=== PATIENT | male | born 1930 | race Caucasian/White ===

== ENCOUNTER → 2018-06-30 | Outpatient (CLI) | payer MEDICARE ==
[~2018-06-30] MED LIST: ALBU8.5H8 INH; ANORA; ASCO100T5 PO; ASPI-496 PO; ATOR20TA9 PO; ATOR40TA78 PO; CALC600T4 PO; CHOL100011 PO; CHOL100012 PO; FINA5TAB4 PO; GLUC100015 PO; LEVO125T63 PO; LOSA50TA7 PO; METO25TA35 PO; MOME13HF2 INH; MULT-208 PO; NIAC500T10 PO; OMEG1CAP23 PO; OXYC5TAB3 PO; THIA100T27 PO; TIOT18CA INH; VITA1TAB19 PO; VITA80004 PEG; methylprednisolone PO
== END | disposition home or self-care (01) ==
LOC: CVU 13:17
PROVIDERS: ATTEND Surgery
DX: I65.23 Occlusion and stenosis of bilateral carotid arteries (principal); I08.0 Rheumatic disorders of both mitral and aortic valves; I11.9 Hypertensive heart disease without heart failure; E78.5 Hyperlipidemia, unspecified; Z87.891 Personal history of nicotine dependence
CPT/HCPCS: 93306; 93880; 93978

== ENCOUNTER → 2018-07-08 | Outpatient (CLI) | payer MEDICARE | END | disposition home or self-care (01) | LOC: RAD 11:08 | PROVIDERS: ATTEND Surgery | DX: I71.4 Abdominal aortic aneurysm, without rupture (principal) | CPT/HCPCS: 72170; 74021 ==

== ENCOUNTER 2019-04-13 10:02 | Inpatient (IN) | payer MEDICARE ==
[~2019-04-13] VITALS: Ht 175.3 cm; Wt 81.1 kg
[2019-04-15 07:30] VITALS: BP 147/73
== END 2019-04-15 10:54 | disposition home health service (06) | DRG 312 ==
LOC: ED 12:23 → EDIP 12:24 → INTOOBSV 12:24 → OBSVTOIN 12:25 → ED 12:45 → 5SO 17:13 → DCLOUNGE 04-15 10:44
PROVIDERS: ADMIT Internal Medicine; ATTEND Internal Medicine
DX: I95.1 Orthostatic hypotension (principal); I44.0 Atrioventricular block, first degree; N40.0 Benign prostatic hyperplasia without lower urinary tract symptoms; Z66 Do not resuscitate; J44.9 Chronic obstructive pulmonary disease, unspecified; I71.4 Abdominal aortic aneurysm, without rupture; I25.10 Atherosclerotic heart disease of native coronary artery without angina pectoris; I10 Essential (primary) hypertension; E78.5 Hyperlipidemia, unspecified; Z86.79 Personal history of other diseases of the circulatory system; Z80.9 Family history of malignant neoplasm, unspecified
CPT/HCPCS: 36415; 71045; 80048; 80053; 81003; 84443; 84484; 85025; 93005; 93306; 93978; 94640; 99285; G0378; J1650; J3480; J7613; J7626; 92523-GN

== ENCOUNTER → 2019-10-12 | Outpatient (CLI) | payer MEDICARE ==
[~2019-10-12] MED LIST changes: +AMLO10TA8 PO; +ASPI-515 PO; +ATOR20TA37 PO; -ATOR20TA9 PO; +FLUT12HF2 INH; +LEVA15HF4 INH; +LEVO137T3 PO; +LOSA100T14 PO; +LOSA50TA14 PO; -LOSA50TA7 PO; +NIAC-1 PO; -NIAC500T10 PO; +TAMS-11 PO
== END | disposition home or self-care (01) ==
LOC: CVU 11:26
PROVIDERS: ATTEND Surgery
DX: I65.23 Occlusion and stenosis of bilateral carotid arteries (principal); I71.4 Abdominal aortic aneurysm, without rupture; I10 Essential (primary) hypertension; J44.9 Chronic obstructive pulmonary disease, unspecified; E78.5 Hyperlipidemia, unspecified; E03.9 Hypothyroidism, unspecified; Z91.041 Radiographic dye allergy status; Z95.5 Presence of coronary angioplasty implant and graft
CPT/HCPCS: 93880; 93978

== ENCOUNTER → 2019-10-24 | Outpatient (CLI) | payer MEDICARE ==
[~2019-10-24] MED LIST changes: +REGADENOSON 0.4 MG/5 ML SYRINGE ONE
== END | disposition home or self-care (01) ==
LOC: RAD 08:50
PROVIDERS: ATTEND Internal Medicine Cardiovascular Disease
DX: I25.10 Atherosclerotic heart disease of native coronary artery without angina pectoris (principal); R07.89 Other chest pain
CPT/HCPCS: 78452; 93017; A9502; J2785

== ENCOUNTER 2020-01-20 09:14 | Emergency (ER) | payer MEDICARE ==
[~2020-01-20] VITALS: Ht 175.3 cm; Wt 75.0 kg
[~2020-01-20 09:14] MED LIST changes: -REGADENOSON 0.4 MG/5 ML SYRINGE ONE
--- NOTE | 2020-01-20 09:25 | NUR ---
PT UP SELF TO RR WTIH STEADY GAIT TO PROVIDE URINE SAMPLE.
[2020-01-20] MEDS ORDERED: SODIUM CHLORIDE FLUSH 10ML SYR IVF ONE (10:00)
[2020-01-20 10:13] LABS: BASOPHILS # (AUTO) 0.04 x10^3/uL (0-0.1); BASOPHILS % (AUTO) 1 % (0-1); EOSINOPHILS # (AUTO) 0.61 x10^3/uL (0-0.4); EOSINOPHILS % (AUTO) 7 % (1-7); LYMPHOCYTES # (AUTO) 1.73 x10^3/uL (1-3.4); LYMPHOCYTES % (AUTO) 20 % (22-44); MD NO; MEAN CORPUSCULAR HEMOGLOBIN 31.4 pg (27.5-34.5); MEAN CORPUSCULAR VOLUME 95.1 fL (81-97); MONOCYTES # (AUTO) 0.69 x10^3/uL (0.2-0.8); MONOCYTES % (AUTO) 8 % (2-9); NEUTROPHILS # (AUTO) 5.61 x10^3/uL (1.8-6.8); NEUTROPHILS % (AUTO) 65 % (42-75); PLATELET COUNT 346 x10^3/uL (130-400); RED CELL DISTRIBUTION WIDTH 13.4 % (9.4-14.8)
--- NOTE | 2020-01-20 10:14 | NUR ---
PT TO ED FOR GROSS HEMATURIA SINCE YESTERDAY. PT DENIES ABD LA PELVIC PAIN, N/V/F/C/D. PT CONNECTED TO MONITORS. HX ASYMPTOMATIC BRADYCARDIA, VSS. EDPA FADUMO TO BS FOR ASSESSMENT. ORDERS RECEIVED. PIV ESTABLISHED AND LABS DRAWN AND SENT TO LAB. NO NEEDS EXPRESSED AT THIS TIME. CALL LIGHT WITHIN REACH. AWAITING LAB RESULTS AND CT.
[2020-01-20 10:15] LABS: MICROSCOPIC INDICATED
[2020-01-20 10:22] LABS: CULTURE INDICATED? YES
[2020-01-20 10:25] LABS: ALANINE AMINOTRANSFERASE 16 U/L (12-78); ALBUMIN 3.5 g/dL (3.4-5.0); ANION GAP 3 mmol/L (5-15); CHLORIDE 111 mmol/L (98-107); CREATININE 1.28 mg/dL (0.7-1.3)
[2020-01-20 10:27] LABS: ALKALINE PHOSPHATASE 73 U/L (45-117); BILIRUBIN,TOTAL 0.5 mg/dL (0.2-1.0)
--- NOTE | 2020-01-20 10:40 | NUR ---
PT TO CT.
--- NOTE | 2020-01-20 11:08 | NUR ---
pt resting room. vss. no needs expressed. call light within reach. awaiting ct resutls.
--- NOTE | 2020-01-20 11:27 | NUR ---
all results back at this time. chart up for recheck.
--- NOTE | 2020-01-20 12:03 | NUR ---
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 ABDUL REQUEST
[2020-01-20 13:18] VITALS: BP 155/115
== END 2020-01-20 13:20 | disposition home or self-care (01) ==
LOC: ED 11:00
DX: R31.0 Gross hematuria (principal); R10.9 Unspecified abdominal pain; J44.9 Chronic obstructive pulmonary disease, unspecified; E78.5 Hyperlipidemia, unspecified; I25.10 Atherosclerotic heart disease of native coronary artery without angina pectoris; Z90.49 Acquired absence of other specified parts of digestive tract; Z98.61 Coronary angioplasty status; Z87.891 Personal history of nicotine dependence; Z86.39 Personal history of other endocrine, nutritional and metabolic disease
CPT/HCPCS: 36415; 74178; 80053; 81001; 85025; 87086; 99285